=== PATIENT | female | born 1960 | race Caucasian/White ===

== ENCOUNTER → 2016-07-12 | Outpatient (CLI) | payer OTHER ==
[~2016-07-12] MED LIST: ASPIRIN EC81 M1 PO; B-121000 MC1 PO; CHLORTHALIDONE25 MG PO; COUMADIN5 MG PO; COUMADIN6 MG PO; JANUVIA50 MG PO; LIPITOR40 MG PO; LISINOPRIL20 MG PO; MINOCYCLINE HC100 M1 PO; NATEGLINIDE60 MG PO; OMEPRAZOLE40 M1 PO; SENEXON-S TABL1 EACH PO; TOUJEO SOL300 UNIT/1 SUBQ; VITAMIN D250000 UNIT PO; ZETIA PO; ZYLOPRIM100 MG PO; [UNRECOGNIZED DRUG - OTHER] PO
== END | disposition home or self-care (01) ==
LOC: CLAB 08:53
DX: Z01.812 Encounter for preprocedural laboratory examination (principal); E66.01 Morbid (severe) obesity due to excess calories
CPT/HCPCS: 36415; 84443; 86677; G0463

== ENCOUNTER → 2016-07-29 | Outpatient (CLI) | payer OTHER ==
--- NOTE | ~2016-07-29 | CR63 ---
[facility] A Service of [facility] RADIOLOGY TEXT RESULTS PATIENT: RODOLFO LAGUERRE LOCATION: [facility] : 58 UNIT #: [id number] AGE: [address]: Johnathon Roth MD SEX: F ORDER DR: [id number] [facility] [address] [place], [place] [address] [id number] O MR#: [id number] Acc #: [id number] NAME: RODOLFO LAGUERRE. : 1960 SEX: F STUDY DATE/TIME: 07/29/2016 7:40 UNIT: [facility] ROOM: STUDY DESCRIPTION: CR Chest 2 View Attending Physician: Johnathon Roth M.D. Referring Physician: Johnathon Roth M.D. Ordering Physician: Johnathon Roth M.D. Primary Care Physician: Anabela Vaca M.D. MEDICAL IMAGING REPORT This report is preliminary unless electronic signature is present EXAM Chest 2 views dated 07/29/2016 COMPARISON Portable chest dated 11/18/2008. HISTORY Difficulty swallowing. Cyst on thyroid. High blood pressure, shortness of air. This is a preop evaluation. History of skin basal cell carcinoma which was removed in 2017. FINDINGS PA and lateral examination of the chest upright shows a good expansion of the parenchyma with a normal distribution of the pulmonary vascularity. There is no indication of congestion, effusion, infiltrate, tumor, or nodular density. The pleural reflections and diaphragmatic contours are normal. The cardiac silhouette and mediastinal anatomy is within normal limits. IMPRESSION Normal chest. Dictated by... Stacey Cueva M.D. THIS IS AN ELECTRONICALLY VERIFIED REPORT Stacey Cueva M.D. at 07/29/2016 5:18 PM CPR/mjs [facility] A Service of [facility] RADIOLOGY TEXT RESULTS PATIENT: RODOLFO LAGUERRE LOCATION: [facility] : 58 UNIT #: [id number] AGE: [address]: Johnathon Roth MD SEX: F ORDER DR: TD: 07/29/2016 08:38 JOB #: [id number] MEDICAL IMAGING REPORT Page 1 of 1 COPY
--- NOTE | ~2016-07-29 | CR97 ---
[facility] A Service of [facility] & [facility] RADIOLOGY TEXT RESULTS PATIENT: RODOLFO LAGUERRE LOCATION: [facility] : 58 UNIT #: [id number] AGE: [address]: Johnathon Roth MD SEX: F ORDER DR: [id number] [facility] [address] [place], [place] [address] [id number] O MR#: [id number] Acc #: [id number] NAME: RODOLFO LAGUERRE. : 1960 SEX: F STUDY DATE/TIME: 07/29/2016 8:10 UNIT: [facility] ROOM: STUDY DESCRIPTION: CR Esophagram Attending Physician: Johnathon Roth M.D. Referring Physician: Johnathon Roth M.D. Ordering Physician: Johnathon Roth M.D. Primary Care Physician: Anabela Vaca M.D. MEDICAL IMAGING REPORT This report is preliminary unless electronic signature is present EXAM Barium esophagram. INDICATION Morbid obesity. Preop for Lap-Band surgery. TECHNIQUE Fluoro time is 0.3 minutes. FINDINGS There are multiple tertiary contractions. There is a small sliding hiatal hernia. Remainder of the study is unremarkable. IMPRESSION Small sliding hiatal hernia. Multiple tertiary contractions. Dictated by... Eulalio Wadsworth M.D. THIS IS AN ELECTRONICALLY VERIFIED REPORT Eulalio Wdasworth M.D. at 07/29/2016 4:42 PM [facility]/jamir TD: 07/29/2016 11:17 JOB #: [id number] MEDICAL IMAGING REPORT Page 1 of 1 COPY
[2016-07-29 10:55] LABS: CHOLESTEROL 200 mg/dL (0-200); HDL CHOLESTEROL 40 mg/dL (35-95); LDL CHOLESTEROL 122 mg/dL (-130); LDL/HDL RATIO 3 RATIO (0-4); TRIGLYCERIDES 192 mg/dL (10-160)
== END | disposition home or self-care (01) ==
LOC: CAMB 07:08
PROVIDERS: Surgery
DX: Z01.818 Encounter for other preprocedural examination (principal); E66.01 Morbid (severe) obesity due to excess calories; K44.9 Diaphragmatic hernia without obstruction or gangrene
CPT/HCPCS: 36415; 71020; 74220; 80061; 84443

== ENCOUNTER → 2016-08-10 | Day surgery (SDC) | payer OTHER ==
--- NOTE | ~2016-08-10 | CR7 ---
[facility] A Service of [facility] & [facility] RADIOLOGY TEXT RESULTS PATIENT: RODOLFO LAGUERRE LOCATION: [facility] : 58 UNIT #: [id number] AGE: [address]: Johnathon Roth MD SEX: F ORDER DR: [id number] [facility] [address] [place], [place] [address] [id number] O MR#: [id number] Acc #: [id number] NAME: RODOLFO LAGUERRE. : 1960 SEX: F STUDY DATE/TIME: 08/10/2016 11:46 UNIT: [facility] ROOM: STUDY DESCRIPTION: CR Abdomen Single AP View Attending Physician: Johnathon Roth M.D. Ordering Physician: Johnathon Roth M.D. Primary Care Physician: Anabela Vaca M.D. MEDICAL IMAGING REPORT This report is preliminary unless electronic signature is present EXAM Supine radiograph abdomen, 08/10/2016. HISTORY Postop Lap-Band PACU front. TECHNIQUE Supine radiograph of the abdomen is presented. FINDINGS Patient in a somewhat left anterior oblique projection. Status post placement of Lap-Band device. The band component is at the anticipated location of gastroesophageal junction given obliquity of this image and in comparison to esophagram 08/06/2016. There is retained contrast material in the colon. I have no evidence of additional enteric contrast administration at this institution in the interval from prior esophagram. Retention of contrast in the colon since 07/29/2016 would suggest a delay in bowel transit. Correlate clinically. There is no small bowel or colonic dilatation suggested and there is no free air. The band component of Lap-Band device is oriented at approximately 72 degrees from the vertical. The visualized portion of the catheter component is radiographically intact. It is not fully included on field of view. The port component of the device is implanted over the lower abdomen. Lung bases are clear. Heart appears normal in size given obliquity. Dictated by... Johnathon Julian M.D. THIS IS AN ELECTRONICALLY VERIFIED REPORT Johnathon Julian M.D. at 08/11/2016 10:55 PM [facility] A Service of [facility] & [facility] RADIOLOGY TEXT RESULTS PATIENT: RODOLFO LAGUERRE LOCATION: [facility] : 58 UNIT #: [id number] AGE: [address]: Johnathon Roth MD SEX: F ORDER DR: Jose L TD: 08/10/2016 14:05 JOB #: [id number] MEDICAL IMAGING REPORT Page 1 of 1 COPY
--- NOTE | ~2016-08-10 | OR ---
Unit #: [id number] #: [id number] Patient: RODOLFO LAGUERRE [id number] [facility] [place], [place] [address] [id number] O MR#: [id number] NAME: RODOLFO LAGUERRE ROOM: Date of Procedure: 08/10/2016 Admission Date: 08/10/2016 Surgeon: Johnathon Roth M.D. : 1960 Attending Physician: Johnathon Roth M.D. Primary Care Physician: Anabela Vaca M.D. PROCEDURE OPERATIVE NOTE PREOPERATIVE DIAGNOSIS Chronic morbid obesity, BMI 40. POSTOPERATIVE DIAGNOSES 1. Chronic morbid obesity, BMI 40. 2. Paraesophageal hiatal hernia. PROCEDURE PERFORMED 1. Laparoscopic adjustment of gastric band. 2. Laparoscopic paraesophageal hiatal hernia repair. SURGEON Dr. Roth ACCOUNTING ADVISORY SERVICES MANAGER Dr. Doshi. ANESTHESIA General endotracheal anesthesia. ESTIMATED BLOOD LOSS Minimal. IV FLUIDS 800 crystalloid. COMPLICATIONS None. INDICATIONS FOR PROCEDURE 56-year-old with chronic morbid obesity. DESCRIPTION OF PROCEDURE The patient was taken to the operating room and placed in supine position. General anesthesia was induced. The abdomen was prepped and draped. A 3-cm incision was then made left of the midline. A 10-mm Visiport was then placed intraabdominal under direct vision. The abdomen was insufflated to 15 mmHg with CO2. The patient was then placed in a steep reversed Trendelenburg. General inspection of the abdomen revealed what appeared to be a paraesophageal hernia. This was identified with a defect at the diaphragm using anterior palpation with the instrument. We then made a small incision in the subxiphoid region. A [facility] liver Unit #: [id number] #: [id number] Patient: RODOLFO LAGUERRE retractor was then placed intraabdominal and used to retract the left lobe of the liver upward to further expose the paraesophageal hernia and GE junction. I then placed a 5-mm port in the right upper quadrant, a 10-mm port in the left upper quadrant, and another 5-mm port in the left lower quadrant. The stomach was retracted medial and downward. Upon retracting the stomach, we took down the paraesophageal ligament, exposing the right and left nagi at the paraesophageal hernia. Any hernia sac was reduced. We then repaired the paraesophageal hernia using interrupted #0 Ethibond sutures in a [id number] type fashion. This formed a snug repair to the anterior esophagus. We then retracted the stomach medially and further exposed the angle of His using Bovie electrocautery. The stomach was then retracted laterally. We then took down the hepatogastric ligament with Bovie electrocautery. This exposed the right nagi. Using blunt dissection, I created a retrogastric tunnel from this point to the angle of His. The band was then placed intraabdominal through the 10-mm port site. This was then brought through the retrogastric tunnel in a pars flaccida technique. The band was then closed anteriorly to form a 20-mL to 25-mL anterior gastric pouch. The fundus was then secured to the anterior pouch to prevent movement around the stomach using two interrupted #0 Ethibond sutures. A third suture was then used as a gathering stitch from the lesser curve to the anterior stomach, gathering and imbricating the remaining fundus of the stomach. The tubing was then brought out through the midline 10-mm port site. All ports and the Chel liver retractor were removed under direct vision with no evidence of abdominal hemorrhage. A polypropylene mesh was then secured to the posterior face of the laparoscopic band port. This was secured using #0 Ethibond suture. This was then cut to shape. The port was then connected to the tubing and placed into a subcutaneous pocket just anterior to the rectus sheath. Its position was then confirmed. All tubing was then placed intraabdominal. The wounds were then closed with interrupted 4-0 Vicryl. The patient tolerated the procedure well and was sent to the recovery room in good condition. Dictated by... Reagan Carranza TD: 08/11/2016 06:53 JOB #: [id number] PROCEDURE OPERATIVE NOTE Page 1 of 1 X Johnathon Roth MD X PROCEDURE OPERATIVE NOTE
[2016-08-10 10:17] LABS: INR 1.1; PROTHROMBIN TIME (PATIENT) 11.3 SECONDS (9.6-11.5)
== END | disposition home or self-care (01) ==
LOC: CSUR 07:30
PROVIDERS: Surgery
DX: E66.01 Morbid (severe) obesity due to excess calories (principal); K44.9 Diaphragmatic hernia without obstruction or gangrene; N18.3 Chronic kidney disease, stage 3 (moderate); K21.9 Gastro-esophageal reflux disease without esophagitis; E78.00 Pure hypercholesterolemia, unspecified; I12.9 Hypertensive chronic kidney disease with stage 1 through stage 4 chronic kidney disease, or unspecified chronic kidney disease; M81.0 Age-related osteoporosis without current pathological fracture; M19.90 Unspecified osteoarthritis, unspecified site; M47.812 Spondylosis without myelopathy or radiculopathy, cervical region; E11.22 Type 2 diabetes mellitus with diabetic chronic kidney disease; E53.8 Deficiency of other specified B group vitamins; E78.5 Hyperlipidemia, unspecified; E55.9 Vitamin D deficiency, unspecified; Z90.49 Acquired absence of other specified parts of digestive tract; Z68.41 Body mass index [BMI] 40.0-44.9, adult; Z90.710 Acquired absence of both cervix and uterus; Z98.51 Tubal ligation status; Z88.2 Allergy status to sulfonamides; Z88.8 Allergy status to other drugs, medicaments and biological substances; Z86.718 Personal history of other venous thrombosis and embolism; Z79.82 Long term (current) use of aspirin; Z79.01 Long term (current) use of anticoagulants; Z79.899 Other long term (current) drug therapy; Z87.891 Personal history of nicotine dependence
CPT/HCPCS: 74000; 82947; 85610; C1781; J0131; J0330; J0690; J1170; J1650; J1885; J2250; J2405; J2710; J3010